=== PATIENT | male | born 1975 | race Caucasian/White ===

== ENCOUNTER 2018-10-10 16:43 | Emergency (ER) | payer SELFPAY ==
[~2018-10-10] VITALS: Ht 180.3 cm; Wt 85.6 kg
[2018-10-10 17:08] VITALS: BP 147/82
== END 2018-10-10 22:41 | disposition left against medical advice (07) ==
LOC: ER 18:12
DX: Z53.21 Procedure and treatment not carried out due to patient leaving prior to being seen by health care provider (principal)